=== PATIENT | female | born 1965 | race Caucasian/White ===

== ENCOUNTER 2017-06-22 13:34 | Emergency (ER) | payer OTHER ==
[~2017-06-22] VITALS: Wt 70.0 kg
[2017-06-22] MEDS ORDERED: DEXTROSE 50% 50 ML SYRINGE IV STA (14:10)
[2017-06-22 14:29] LABS: BASOPHILS % 0.1 % (0.0-2.0); EOSINOPHILS % 0.4 % (0.0-7.0); HEMATOCRIT 38.6 % (37.0-47.0); HEMOGLOBIN 12.4 g/dl (12.0-16.0); LYMPHOCYTES # 1.3 10^3/ul (0.8-2.9); LYMPHOCYTES % 17.3 % (15.0-51.0); MEAN CORPUSCULAR HEMOGLOBIN 29.7 pg (29.0-33.0); MEAN CORPUSCULAR HGB CONC 32.1 g/dl (32.0-37.0); MEAN CORPUSCULAR VOLUME 92.6 fl (82.0-101.0); MEAN PLATELET VOLUME 9.1 fl (7.4-10.4); MONOCYTE # 0.2 10^3/ul (0.3-0.9); NEUTROPHILS % 78.9 % (39.0-77.0); PLATELET COUNT 258 10^3/UL (140-415); RED BLOOD COUNT 4.17 10^6/ul (4.20-5.40); RED CELL DISTRIBUTION WIDTH 12.8 % (11.5-14.5); WHITE BLOOD COUNT 7.6 10^3/ul (4.8-10.8)
--- NOTE | 2017-06-22 14:44 | ERD ---
ER Documentation Chief Complaint Chief Complaint GEN WEAKNESS AND NAUSEA AND DIAPHORESIS. BS 66, NO NEURO DEF. NO PAIN HPI This is a 51-year-old female with a past medical history of migraines and hypertension who is presenting with an episode of presyncope. The patient was in the kitchen cooking when she started to beef feel warm, lightheaded, sweaty and felt like her vision was about to go out. She did not actually pass out. She sat down and had some water in the hopes that it would go away. The symptoms persisted for about 30 minutes, at which point she called the paramedics. The paramedics checked her blood sugar, which was found to be at 66. She was transferred here for further evaluation. Since the transfer, the patient's symptoms have improved significantly. The patient feels a little lightheaded at this time, but she no longer has any other symptoms and does not feel like she is going to pass out. The patient denies feeling sick recently. The patient denies fever or chills. The patient has had no headache or vision changes. The patient does not endorse neck or back pain. The patient has had no chest pain or shortness of breath or trouble breathing. The patient denies nausea or vomiting. The patient denies abdominal pain or changes to bowel movements or urination. The patient has had no focal deficits. The patient has had no weakness or numbness or tingling to the face or extremities. ROS All systems reviewed and are negative except as per history of present illness. Medications Home Meds Reported Medications Naproxen* (Naproxen*) 500 Mg Tablet, 250 MG PO DAILY, TAB TAKE 3 TIMES A WEEK 06/22/17 Benazepril Hcl* (Benazepril Hcl*) 20 Mg Tablet, 20 MG PO DAILY, #30 TAB 06/22/17 Sumatriptan Succinate* (Imitrex*) 50 Mg Tablet, 50 MG PO Q OTHER DAY Y for MIGRAINE HEADACHE, TAB May repeat after 2 hours if needed; MAX 200 mg/24 hours 06/22/17 Aspirin* (Aspirin* EC) 81 Mg Tablet.dr, 81 MG PO DAILY, TAB 06/22/17 PMhx/Soc Medical and Surgical Hx: pt denies Medical Hx, pt denies Surgical Hx History of Surgery: Yes (gallblader,hysterectomy) Hx Neurological Disorder: Yes (Migraines) Hx Cardiac Disorders: Yes (Hypertension) Hx Miscellaneous Medical Probl: No Hx Alcohol Use: No Hx Substance Use: No Hx Tobacco Use: No Smoking Status: Never smoker FmHx Family History: No diabetes Physical Exam Vitals Vital Signs Date Time Temp Pulse Resp B/P Pulse Ox O2 Delivery O2 Flow Rate FiO2 06/22/17 14:53 69 136/91 06/22/17 14:52 60 142/77 06/22/17 14:52 60 144/84 06/22/17 13:40 98.6 97 20 158/94 97 Physical Exam Const: No apparent distress, well-developed, well-nourished Head: Atraumatic Eyes: Normal Conjunctiva. Extraocular movements intact. ENT: Normal External Ears, Nose and Mouth. Neck: Full range of motion. ~ No meningismus. Resp: Clear to auscultation bilaterally Cardio: Regular rate and rhythm, no murmurs Abd: Soft, non tender, non distended. Normal bowel sounds Skin: No petechiae or rashes Back: No midline or flank tenderness Ext: No cyanosis, or edema Neur: Awake and alert, oriented 4. Cranial nerves intact. No facial droop. Normal strength and sensation in all extremities. Coordination with finger to nose normal. Psych: Normal Mood and Affect Result Diagram: 06/22/17 1420 06/22/17 142 Results 24 hrs Laboratory Tests Test 06/22/17 14:18 06/22/17 14:20 06/22/17 15:48 Bedside Glucose 78mg/dL 165mg/dL White Blood Count 7.610^3/ul Red Blood Count 4.1710^6/ul Hemoglobin 12.4g/dl Hematocrit 38.6% Mean Corpuscular Volume 92.6fl Mean Corpuscular Hemoglobin 29.7pg Mean Corpuscular Hemoglobin Concent 32.1g/dl Red Cell Distribution Width 12.8% Platelet Count 41828^3/UL Mean Platelet Volume 9.1fl Neutrophils % 78.9% Lymphocytes % 17.3% Monocytes % 3.0% Eosinophils % 0.4% Basophils % 0.1% Nucleated Red Blood Cells % 0.0/100WBC Neutrophils # 6.010^3/ul Lymphocytes # 1.310^3/ul Monocytes # 0.210^3/ul Eosinophils # 0.010^3/ul Basophils # 0.010^3/ul Nucleated Red Blood Cells # 0.010^3/ul Sodium Level 141mmol/L Potassium Level 3.6mmol/L Chloride Level 101mmol/L Carbon Dioxide Level 28mmol/L Anion Gap 16 Blood Urea Nitrogen 11mg/dl Creatinine 0.61mg/dl Glucose Level 75mg/dl Calcium Level 8.9mg/dl Troponin I < 0.012ng/ml Current Medications Medications (Trade) Dose Ordered Sig/Stephanie Route PRN Reason Start Time Stop Time Status Last Admin Dose Admin Dextrose (D50w Syringe) 25 ml ONCE STAT IV 06/22/17 14:10 06/22/17 14:11 DC 06/22/17 14:56 Procedures/MDM MDM The patient's presentation warrants further investigation. The sugar was on the lower side at 66 prior to arrival. It will be rechecked here, may the patient may benefit from receiving sugar in the emergency department. LABS The patient's blood work was obtained and reviewed. The patient's CBC shows no leukocytosis or left shift. The patient is afebrile and does not appear systemically ill. I do not suspect a systemic infection. The patient is not anemic today. The patient's platelet count is unremarkable. The patient's CMP shows mild hyperglycemia, but otherwise no emergent signs of metabolic or electrolyte abnormality. The patient has normal renal and hepatic function testing. Troponin negative. EKG EKG read by me: Rate/Rhythm: Regular rate and rhythm at a rate of 62 Intervals: Normal [place]: Normal Impression: No evidence of ischemia or arrhythmia IMAGING CXR FINDINGS: The cardiomediastinal silhouette is within normal limits. Scattered atelectasis is identified in the bilateral lower lobes. No consolidations are identified. No pneumothorax is seen. 12 mm potential nodular densities in the perihilar left upper lobe. Osseous structures are intact. IMPRESSION: Atelectasis in the bilateral lower lobes. 12 mm potential nodule in the perihilar left upper lobe. Further characterization with CT is recommended. Electronically viewed and signed by .Ash Webster MD, on 06/22/2017 15:23 TREATMENT/DISPOSITION She was evaluated for presyncope. Her physical exam is reassuring. Her vital signs are reassuring. Her EKG, chest x-ray and blood work are reassuring, aside from hyperglycemia. The patient was given sugar in the emergency department after which her symptoms resolved completely. Orthostatics were checked and were normal. Did have a pulmonary nodule on her chest x-ray that does require further evaluation. She needs follow-up with her primary care physician, and she may benefit from an outpatient CT scan for further evaluation. Discussion with the primary doctor may include need for coordination with a film historian versus oncologist depending on the results of the CT scan. At this time, I feel that the patient stable for discharge. He will need follow -up with his primary care physician in 2-3 days. He will be given strict precautions with which to return to the emergency department. The patient's blood pressure was elevated at greater than 120/80 while in the emergency department. The patient was otherwise stable with no evidence of hypertensive urgency or emergency. The patient will require reevaluation of his blood pressure in 2-3 days, but this may be completed by a primary care physician as an outpatient. He does not require admission for blood pressure control. Departure Diagnosis: Primary Impression: Postural dizziness with presyncope Additional Impressions: Hypoglycemia Pulmonary nodule High blood pressure Hypertension type: unspecified Qualified Code: I10 - Hypertension, unspecified type Condition: VALENTINA Coronel MD Jun 22, 2017 14:44
[2017-06-22 14:57] LABS: ANION GAP 16 (8-16); BLOOD UREA NITROGEN 11 mg/dl (7-20); CALCIUM 8.9 mg/dl (8.4-10.2); CARBON DIOXIDE 28 mmol/L (21-31); CHLORIDE 101 mmol/L (97-110); CREATININE 0.61 mg/dl (0.44-1.00); GLUCOSE 75 mg/dl (70-220); POTASSIUM 3.6 mmol/L (3.5-5.1); SODIUM 141 mmol/L (135-144)
[2017-06-22] MEDS ORDERED: ASPI-664 PO (15:04)
[2017-06-22] MEDS ORDERED: SUMA50TA11 PO (15:04)
[2017-06-22] MEDS ORDERED: BENA20TA48 PO (15:10)
[2017-06-22] MEDS ORDERED: NAPR-688 PO (15:11)
[2017-06-22 15:14] LABS: TROPONIN-I < 0.012 ng/ml (0.00-0.12)
--- NOTE | 2017-06-22 15:24 | RADRPT ---
PROCEDURE: XR Chest 1 View. CLINICAL INDICATION: Shortness of breath. Syncope. TECHNIQUE: AP view of the chest was obtained. COMPARISON: None. FINDINGS: The cardiomediastinal silhouette is within normal limits. Scattered atelectasis is identified in the bilateral lower lobes. No consolidations are identified. No pneumothorax is seen. 12 mm potential nodular densities in the perihilar left upper lobe. Osseous structures are intact. IMPRESSION: Atelectasis in the bilateral lower lobes. 12 mm potential nodule in the perihilar left upper lobe. Further characterization with CT is recomme nded. RPTAT: AA .Ash Webster MD, Date Time Electronically viewed and signed by .Ash Webster MD, MD on 06/22/2017 15:23 .P/
[2017-06-22 16:41] VITALS: BP 139/70; PULSE 78; RESP 20
== END 2017-06-22 16:43 | disposition home or self-care (01) ==
LOC: E/R 13:34
DX: H81.10 Benign paroxysmal vertigo, unspecified ear (principal); R55 Syncope and collapse; E16.2 Hypoglycemia, unspecified; R91.1 Solitary pulmonary nodule; I10 Essential (primary) hypertension; Z79.82 Long term (current) use of aspirin
CPT/HCPCS: 36415; 71010; 80048; 82962; 84484; 85025; 93005; 96374; Z7502; Z7610